=== PATIENT | female | born 1975 | race Caucasian/White ===

== ENCOUNTER 2020-11-18 22:02 | Emergency (ER) | payer OTHER ==
[~2020-11-18] VITALS: Ht 172.7 cm; Wt 104.3 kg
[~2020-11-18 22:02] MED LIST: CIPROFLOXACIN500 M1 PO; HYDROCODON-ACE1 EACH PO; NOHOMEMEDICATIONS; PERCOCET 5-3251 EACH PO; VENTOLIN HFA INH8 GM IH; ZOFRAN ODT4 MG PO; ZPAK PO
[2020-11-18 23:56] LABS: ABSOLUTE LYMPHOCYTES 0.7 thou/uL (0.8-5.3); ABSOLUTE MONOCYTES 0.3 thou/uL (0.0-1.2); ABSOLUTE NEUTROPHILS 3.3 thou/uL (1.6-8.1); BASOPHILS 0.9 %; HEMATOCRIT 35.7 % (37.0-47.0); HEMOGLOBIN 12.2 gm/dL (12.0-15.0); LYMPHOCYTES 16.3 %; MCH 28.5 pg (26.0-34.0); MCHC 34.3 g/dL (28.0-37.0); MCV 83.2 fL (80.0-100.0); MPV 8.9 fl. (7.2-11.1); NUCLEATED RBCS 0 /100WBC; PLATELET COUNT* 145 thou/uL (150-400); POLYS 75.8 %; RBC 4.29 mil/uL (4.20-5.00); RDW-CV 15.7 % (10.5-14.5); WBC 4.3 thou/uL (4.0-11.0)
[2020-11-19 00:40] LABS: URINE BILIRUBIN NEGATIVE (Negative); URINE BLOOD 1+ (Negative); URINE CLARITY CLEAR; URINE COLOR YELLOW; URINE GLUCOSE-RANDOM NEGATIVE (Negative); URINE KETONES NEGATIVE (Negative); URINE LEUKOCYTES-REFLEX NEGATIVE (Negative); URINE NITRITE-REFLEX NEGATIVE (Negative); URINE PROTEIN NEGATIVE (Negative); URINE SPECIFIC GRAVITY 1.015 (1.005-1.030); URINE UROBILINOGEN 0.2 E.U./dl (0.2-1.0)
[2020-11-19 00:43] VITALS: BP 154/96
[2020-11-19 00:53] LABS: BACTERIA-REFLEX 1-9 Few /HPF (None Seen); CASTS None Seen /LPF (None Seen); CRYSTALS None Seen /LPF (None Seen); MUCUS 0-3 Light strn/LPF (None Seen); SQUAMOUS 0-3 Few /LPF (0-3); URINE RBC 0-2 Rare /HPF (0-2); URINE WBC-REFLEX 0-5 Rare /HPF (0-5)
== END 2020-11-19 00:40 | disposition home or self-care (01) ==
LOC: M.ERS 22:02
PROVIDERS: Personal Emergency Response Attendant
DX: E86.0 Dehydration (principal); Z20.822 Contact with and (suspected) exposure to COVID-19; Z98.51 Tubal ligation status

== ENCOUNTER → 2021-03-15 | Day surgery (SDC) | payer OTHER ==
[~2021-03-15] MED LIST changes: +EXCEDRIN CAPLE1 EACH PO; +OXYCODONE HCL 55 MG PO
--- NOTE | 2021-03-20 15:12 | PATH ---
[facility] [address] [place] [address] PATHOLOGY RPT PROCEDURE Name: KAILEY KEENAN Room: [facility]#: [id number] Admission: 03/15/21 Date of : 75 Discharge: Report #: [id number] Path Case #: [id number] [facility] Accession Number: [id number] . 01 Material submitted: . gallbladder - GALLBLADDER . 01 Clinical history: . LAPAROSCOPIC CHOLECYSTECTOMY EGD IN OR CHOLELITHIASIS . 02 Diagnosis: Gallbladder: - Chronic cholecystitis and cholelithiasis. ([place]:[facility]; 03/20/2021) [facility] 03/20/2021 1249 Local . 02 Electronically signed: . Aakash Pike MD, Pathologist NPI- [id number] . 01 Gross description: . Fixative: formalin Labeled: gallbladder Specimen received: partially collapsed Dimensions: 11 x 6 x 5.1 cm Serosa: smooth green Lymph node: not identified Mucosa: velvety-without obvious lesions Average wall thickness: 0.4 cm Calculi: Multiple green measuring up to 2.2 cm Abnormalities: None . Quote Clerk body, fundus, and the cystic duct margin in cassette A1. ([facility] [place]; 03/17/2021) . ROSELIA/ROSELIA 03/17/2021 1844 Local . 02 Pathologist provided ICD-10: K80.10 . 02 CPT . 432981 Specimen Comment: A courtesy copy of this report has been sent to [phone] Specimen Comment: [phone] Specimen Comment: Report sent to / DR ALBA [address] [address] PATHOLOGY RPT PROCEDURE Name: KAILEY KEENAN Room: [facility]#: [id number] Admission: 03/15/21 Date of : 75 Discharge: Report #: [id number] Path Case #: [id number] Performed at: 01 [facility] [address], [place], [place] [id number] MD Jose Baig MD Phone: [phone] Performed at: 02 [facility] [address] [place], [place] [id number] MD Aakash Pike MD Phone: [phone]
--- NOTE | 2021-03-22 16:17 | OP ---
[address] [address] OPERATIVE REPORT Name: KAILEY KEENAN Room: [facility].#: [id number] Admission: 03/15/21 Attend Phys: Kalee Oswald Discharge: Date of : 75 Report #: [id number] THIS REPORT FOR: cc: Ellen Carbajal Stefany RNP Gazzetta, Joshua D. DO ~ DOC #: [id number] Talha Angelo DO DATE OF SURGERY: 03/15/2021 SURGEON: Talha Angelo DO SUPERVISOR SHRIMP POND: Dr. Chato Pinto. PREOPERATIVE DIAGNOSIS: Epigastric pain, cholelithiasis. POSTOPERATIVE DIAGNOSIS: Epigastric pain, cholelithiasis. PROCEDURE PERFORMED: 1. EGD. 2. Laparoscopic cholecystectomy. INDICATIONS: The patient is a 45-year-old female who presented to the office with complaints of postprandial epigastric pain. Ultrasound revealed cholelithiasis. We discussed the risks, benefits and alternatives to an EGD and laparoscopic cholecystectomy. We discussed performing an esophagogastroduodenoscopy to rule out ulcers before we proceeded with the cholecystectomy. Risks discussed include bleeding, infection and damage to nearby structures including the bowel and bile ducts. The patient voiced complete understanding and elected to proceed with surgery. OPERATIVE DESCRIPTION: The patient was taken to the operating theater and placed in the supine position. Bilateral SCDs were placed and preoperative antibiotics were given. General anesthesia was induced without complication. The patient's abdomen was prepped and draped in the standard sterile fashion. A timeout was performed and all were in agreement. We began by performing the EGD. The endoscope was advanced through the oropharynx. After bite block had been placed under direct visualization, the esophagus was entered and the scope was advanced into the stomach. The esophagus appeared normal. The Z-line appeared normal. The stomach was insufflated. There were no ulcers or bleeding. The scope was then retrograde to look at the cardia. There appeared to be no significant hiatal hernia. No ulcers were seen. The scope was advanced through the pylorus into the first and second portion of the duodenum. There were no ulcers appreciated. There was no gastritis. The scope was then removed from the stomach and esophagus while desufflating. Upon exit, [place] [address] OPERATIVE REPORT Name: REEKAILEY Room: [facility]#: [id number] Admission: 03/15/21 Attend Phys: Kalee Oswald Discharge: Date of : 75 Report #: [id number] concluded the EGD portion. Next, the abdomen was prepped and draped in standard sterile fashion and an 11 blade scalpel was used to make a supraumbilical vertical midline incision using an 11 blade. Dissection was carried through the skin and subcutaneous tissue using S retractors and electrocautery. Once the anterior fascia was appreciated, it was grasped with Kochers and incised using electrocautery. 0 Vicryl stay sutures were placed on either edge of the fascia. The abdomen was entered bluntly using a hemostat. Jesus trocar was introduced and the abdomen was insufflated to 15 mmHg. The patient was positioned in the head up, left side down position. A 5 mm subxiphoid port was placed under direct visualization. Two further 5 mm ports were placed in the right upper quadrant under direct visualization. Using the special event assistant port, the gallbladder fundus was grasped and elevated towards the anterior abdominal wall. There were some omental adhesions. These omental adhesions were taken down using blunt and electrocautery dissection. Izabel's pouch was then grasped and taken cephalad and medial. The lateral peritoneum of the gallbladder was scored with electrocautery. The peritoneal incision was carried laterally towards the liver and then anteriorly over Izabel's pouch. The peritoneal incision was carried over the medial aspect of the gallbladder. The peritoneum was then swept down from the lateral and medial aspects to reveal the hepatocystic triangle. The hepatocystic triangle was cleared of fibrofatty tissue using blunt dissection, isolating two structures, the cystic duct and cystic artery were then circumferentially dissected using a [place] dissector. A critical view of safety was obtained. There were two structures and only two structures entering the gallbladder. This was seen from the lateral and medial side. The hepatic plate could be seen within the triangle. Two Weck clips were placed on the proximal cystic duct and one on the distal cystic duct. One Weck clip was placed on the proximal cystic artery and one Weck clip on the distal cystic artery. Both structures were transected between the proximal and distal clips respectively using EndoShears. Next, Izabel's pouch was grasped and taken towards the anterior abdominal wall. The gallbladder was dissected free from the gallbladder fossa using electrocautery. The gallbladder was then placed into an EndoCatch bag and placed aside. The gallbladder fossa was visualized. Hemostasis was obtained with electrocautery. The clips were visualized. Again, there was no bile or blood leakage. Very minimal irrigation was used and the right upper quadrant was suctioned dry. The patient was placed in the neutral position. The 5 mm trocars were removed under direct visualization. Next, the Jesus trocar was removed and the gallbladder within the EndoCatch bag were removed. The abdomen was completely desufflated. The midline fascia was closed using an 0 Vicryl in a yskaaz-mm-jxisa fashion. The subcutaneous tissue at the midline was closed using a 3-0 Vicryl in interrupted inverted fashion. All skin incisions were closed using a 4-0 Monocryl in an interrupted inverted fashion. Wounds were dressed with Dermabond. This concluded the procedure. All sponge, needle and instrument [place] [address] OPERATIVE REPORT Name: KAILEY KEENAN Room: [facility].#: [id number] Admission: 03/15/21 Attend Phys: Kalee Oswald Discharge: Date of : 75 Report #: [id number] COMPLICATIONS: None. FINDINGS: Omental adhesions to the gallbladder. Large gallstones, no gastric or duodenal pathology. ESTIMATED BLOOD LOSS: 10 mL. DRAINS: None. SPECIMENS: Gallbladder. ANESTHESIA: General endotracheal anesthesia. DISPOSITION: The patient was extubated successfully in the operating theater and taken to the PACU in stable condition. Talha Angelo DO JDG/GAU <ELECTRONICALLY SIGNED> By: Talha Angelo DO 03/22/21 [id number] Phuong Angelo DO /
== END | disposition home or self-care (01) ==
LOC: M.SUR 06:18
PROVIDERS: ATTEND Surgery
DX: K80.10 Calculus of gallbladder with chronic cholecystitis without obstruction (principal); R10.13 Epigastric pain; F17.210 Nicotine dependence, cigarettes, uncomplicated; Z98.51 Tubal ligation status; Z20.822 Contact with and (suspected) exposure to COVID-19